=== PATIENT | female | born 1985 | race Caucasian/White ===

== ENCOUNTER 2020-10-12 23:01 | Inpatient (IN) | payer OTHER ==
[~2020-10-12] VITALS: Ht 167.6 cm; Wt 83.3 kg
[2020-10-12 23:28] LABS: BASOPHILS % (AUTO) 0.5 % (0-1); EOSINOPHILS # (AUTO) 0.1 X10'3 (0-0.9); EOSINOPHILS % (AUTO) 1.1 % (0-6); HEMATOCRIT 45.7 % (35.0-45.0); HEMOGLOBIN 15.2 g/dl (12.0-16.0); LYMPHOCYTES # (AUTO) 2.1 X10'3 (1.1-4.8); LYMPHOCYTES % (AUTO) 23.2 % (21-51); MEAN CORPUSCULAR HEMOGLOBIN 29.9 PG (27.0-31.0); MEAN CORPUSCULAR HGB CONC 33.4 g/dL (33.0-36.5); MEAN CORPUSCULAR VOLUME 89.6 FL (78-98); MEAN PLATELET VOLUME 7.1 FL (7.4-10.4); MONOCYTES # (AUTO) 0.5 X10'3 (0-0.9); MONOCYTES % (AUTO) 5.2 % (2-12); NEUTROPHILS # (AUTO) 6.3 X10'3 (1.8-7.7); PLATELET COUNT 279 X10'3 (140-440); RED CELL DISTRIBUTION WIDTH 12.8 % (11.5-14.5)
[2020-10-12 23:46] LABS: ALANINE AMINOTRANSFERASE 41 U/L (12-78); ALBUMIN 4.2 G/DL (3.4-5.0); ALBUMIN/GLOBULIN RATIO 1.2 (1.1-1.5); ALKALINE PHOSPHATASE 50 IU/L (46-116); ANION GAP 14 (8-16); ASPARTATE AMINO TRANSFERASE 21 U/L (10-37); BILIRUBIN,TOTAL 0.3 MG/DL (0.1-1.0); BLOOD UREA NITROGEN 8 MG/DL (7-18); BUN/CREATININE RATIO 10.1 (6.6-38.0); CALCIUM 8.4 MG/DL (8.5-10.1); CHLORIDE 109 MMOL/L (99-107); CREATININE 0.79 MG/DL (0.40-0.90); GLUCOSE 104 MG/DL (70-104); POTASSIUM 3.5 MMOL/L (3.5-5.1); SODIUM 145 MMOL/L (135-145); TOTAL PROTEIN 7.8 G/DL (6.4-8.2); eGFR 82 ML/MIN
[2020-10-12 23:55] LABS: ETHANOL 0.067 GM/DL (0.0-0.010)
[2020-10-13 01:56] LABS: URINE HCG NEGATIVE (NEG)
[2020-10-13 02:00] LABS: CLARITY,URINE CLEAR (Clear); COLOR,URINE YELLOW (Yellow); GLUCOSE, URINE NEGATIVE (Neg); KETONES,URINE 15 mg/dl (Neg); LEUKOCYTE ESTERASE ,URINE TRACE (Neg); NITRITES, URINE NEGATIVE (Neg); OCCULT BLOOD,URINE MODERATE (Neg); PH,URINE 5.5 (4.8-8.0); PROTEIN,URINE NEGATIVE (Neg); UROBILINOGEN,URINE 0.2 E.U/dL (0.2-1.0)
[2020-10-13 02:09] LABS: URINE AMPHETAMINE SCREEN NEGATIVE (Neg); URINE BARBITUATE SCREEN NEGATIVE (Neg); URINE BENZODIAZEPINES SCREEN NEGATIVE (Neg); URINE CANNABINOID SCREEN NEGATIVE (Neg); URINE COCAINE SCREEN NEGATIVE (Neg); URINE METHADONE SCREEN NEGATIVE (Neg); URINE OPIATE SCREEN NEGATIVE (Neg); URINE PHENCYCLIDINE SCREEN NEGATIVE (Neg)
[2020-10-13 02:19] LABS: UA COLLECTION TYPE CLN CATCH MIDSTREAM
[2020-10-13 02:27] LABS: BACTERIA,URINE NONE SEEN /HPF (Neg); SQUAMOUS EPITHELIAL CELL,UR MODERATE /LPF (FEW); WBC,URINE 20-30 /HPF (0-4)
[2020-10-13 02:28] LABS: MUCUS STRANDS FEW /LPF (Neg)
--- NOTE | 2020-10-13 03:49 | NUR ---
PACKET FAXED TO [facility]
--- NOTE | 2020-10-13 08:58 | NUR ---
DOLORES DONOHUE [phone] MOTHER. CALLED FOR UPDATE. PT DOES NOT WANT TO SPEAK TO ANYONE. MOTHER NOT UPDATED. SHE WILL CALL BACK LATER TO SEE IF DAUGHTER WANTS TO TALK
--- NOTE | 2020-10-13 10:11 | NUR ---
CALLED [facility], THEY GOT PACKET. THEY WILL BE HERE SOON TO EVALUATE. PT IN ROOM SLEEPING.
--- NOTE | 2020-10-13 10:41 | NUR ---
RECEIVED REPORT FROM ER NURSE. PT TO GO TO BED 22
--- NOTE | 2020-10-13 14:12 | NUR ---
pT ACCEPTED TO [facility]. AWAITING TRANSFFER. DISCHARGEDFROM [facility]
[2020-10-13] MEDS ORDERED: mag hydrox/Alum hydrox/simeth 30ml oral suspension PO PRN (15:15)
[2020-10-13] MEDS ORDERED: loperamide 2mg capsule PO PRN (15:15)
[2020-10-13] MEDS ORDERED: magnesium hydroxide 30ml (MOM) UD suspension PO PRN (15:15)
[2020-10-13] MEDS ORDERED: LORazepam 1 MG tablet PO PRN (15:15)
[2020-10-13] MEDS ORDERED: acetaminophen 325mg tablet PO PRN ×2 (15:15)
[2020-10-13] MEDS ORDERED: NICOTINE POLACRILEX 2 MG LOZENGE BC PRN (15:15)
[2020-10-13] MEDS ORDERED: NO HOME MEDS (15:45)
--- NOTE | 2020-10-13 15:53 | NUR ---
Admission note: Pt admitted today to [place] for Behavioral health on a 5150 for DTS,DTO at 5120. Pt expressed she wants to "End the thoughts". She stated that she was going to kill herself and shot a gun into the ceiling of her home "To make a point". Her four children were at home at the time. Pt states she has threatened to shoot herself before and her has had to take a gun away from her before. Normally the guns are locked up in a safe. Pt recently found out her had cheated on her. Pt states if she were to attempt suicide she would "Drive off a aquilino." Pt has history of depression and anxiety. Pt is cooperative with admission process.
[2020-10-13 16:14] VITALS: BP 158/100
[2020-10-13 19:00] VITALS: BP 140/84
[2020-10-13] MEDS: traZODone 50mg tablet PO PRN (21:17)
--- NOTE | 2020-10-13 23:24 | NUR ---
Nursing Progress Note: Legal hold: 5150 Client on voluntary/involuntary status for DTS. Why are they here: Pt admitted to [place] for Behavioral health on a 5150 for DTS,DTO. Pt expressed she wants to "End the thoughts". She stated that she was going to kill herself and shot a gun into the ceiling of her home "To make a point". Her four children were at home at the time. Pt states she has threatened to shoot herself before and her has had to take a gun away from her before. Normally the guns are locked up in a safe. Pt recently found out her had cheated on her. Pt states if she were to attempt suicide she would "Drive off a aquilino." Pt has history of depression and anxiety. Diagnosis/presenting symptoms: Depression Assessment What has happened this shift: Pt isolated to her room all evening, crying in bed, occasionally talking on the phone. Pt was distraught about not hearing from her , who eventually called. Pt denies being suicidal now but admits to having SI prior to discharging her gun. Pt did not want to discuss anything further. Pt requested trazadone to help her sleep. S/I, H/I: denies A/VH: denies Sleep: see sleep assessment ADL's: independent, showered Group attendance: n/a Were meds taken: yes Any med S/E: no Mental Status Exam Appearance: wnl, in green scrubs Eye contact: fair Behavior: tearful, sobbing at times Speech: wnl Mood: sad, depressed Affect: congruent Thought process: linear Thought Content: missing home Cognition: a/o x4 Insight: fair Judgment: poor Interventions PRN's used: trazadone Therapeutic interventions: 1:1 assessment, therapeutic communication, active listening, ensured contract for safety, medication administration/education/monitoring, encouragement to participate in the unit, encouragement to come out of his room, Q 15 minute safety checks. Restraints/seclusion/emergency medication: N/A Justification of Continued Inpatient Treatment: Patient requires interruption of current crisis, medication adjustment and monitoring, and a safe and therapeutic environment.
[2020-10-14 08:00] VITALS: BP 115/78
--- NOTE | 2020-10-14 12:50 | NUR ---
PSYCHOSOCIAL ASSESSMENT Met with Pt. today to complete Psychosocial. Pt was brought to [facility] by O for danger to self and to others after her daughter reported that she had shot a gun in her home. Pt. expressed that she is depressed and wants to end the thoughts. She stated that she was going to kill herself and shot a gun in to the ceiling of her home to make a point. Her four children were at home at the time. Pt. has a history of suicidal ideation and depression/anxiety. She reported today that she had been on medications for depression/anxiety in the past but had stopped taking these medications years ago. She is open to going back on medications and going to therapy. She reported that in the past six months her and her having been going through a rough patch as she found on that he cheated on her in April 2020. They have decided to stay together and to continue to work on their marriage but she recently found out that he was cheating on her again. She reported they have been together for 18 years and is committed to staying in the marriage. Pt. works for [employer] in [place] and lives in [place], [place]. She only started working again 2 months ago after they thought it would help get her focus off their marital issues. She feels that working has been a very difficult transition. She has an hour commute both ways were she passes by the [employer] home whom her is having an affair with. She finds it difficult to think straight at work with all that is going on between her and her . She reported today that they have decided she will not return to work when she gets back home. Pt. denied feeling suicidal at this time, she admitted to having occasional suicidal thoughts when she feels down. She scaled her feeling of depression at a 2 and anxiety at a 4 on a scale of 0-10, 0 being the best she's ever felt and 10 being the worst. She also reported she just wants to get out of here and began to cry. 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 He reported he feels her being home with her family is the best place for her to be. He reported that he has locked guns back up in the safe and changed the Access codes so she doesnt know what they are. He is supportive of her getting outpt. Services when she leaves [facility]. He also reported that a executive secretary social welfare from [facility] will out to the house this week to talk with them. He will be the one to pick her up upon discharge. MSE: A/O: Alert and oriented X 4 Appearance: wearing hospital clothes Behavior: compliant, pleasant to work with Speech: WNL Mood: anxious, teary presentation Affect: congruent to mood Thought Process: WNL Thought Content: WNL Nimisha Rojas LCSW
--- NOTE | 2020-10-14 14:00 | NUR ---
Nursing Progress Note: Legal hold: 5150 Client on involuntary status for DTS Report received from nurse with use of SBAR: Carol Quinones RN Why are they here: Pt admitted to [place] for Behavioral health on a 5150 for DTS,DTO. Pt expressed she wants to "End the thoughts". She stated that she was going to kill herself and shot a gun into the ceiling of her home "To make a point". Her four children were at home at the time. Pt states she has threatened to shoot herself before and her has had to take a gun away from her before. Normally the guns are locked up in a safe. Pt recently found out her had cheated on her. Pt states if she were to attempt suicide she would "Drive off a aquilino." Pt has history of depression and anxiety. Assessment What has happened this shift: Received pt. sleeping in bed at the beginning of the shift, she awoke and requested PRN Tylenol for a headache before retreating back to bed. Tylenol administered with some effectiveness; pt. did have an elevated blood alcohol content upon admission, however she denies ever experiencing any s/s of withdrawal previously and no other s/s exhibited (no tremors noted, V/S WNL, and no tactile of A/V/MEEK noted).1:1 completed later at bedside, pt. presents as cooperative, guarded, and withdrawn. She denies any S/I and appears to be minimizing, pt. states, "I'm fine." She does inquire about re-starting Lexapro, reporting that it helped her previously. This typewriter repairer encouraged pt. to discuss this with the psychiatrist that she will be meeting with later, and she reported understanding. Pt. remained withdrawn throughout the day and was not observed to be interacting with others. She napped during the afternoon. Per admission labs, pt. had an elevated WBC count and leukocyte esterase in her urine. She currently denies any s/s of a UTI including burning or frequency of urination, however admits she has had frequent UTIs in the past. This was endorsed to Dr. Medellin upon his evaluation of patient. S/I, H/I: Denies A/VH: Denies, does not appear internally preoccupied Sleep: Sleep hours are 7, and pt. naps intermittently during the day ADL's: Independent Group attendance: N/A Were meds taken: None ordered Any med S/E: N/A Mental Status Exam Appearance: Somewhat disheveled r/t laying in bed, however appropriately dressed. Pt. did shower this shift. Eye contact: Moderate Behavior: Cooperative, guarded, and withdrawn Speech: Soft, responses are minimal Mood: Guarded Affect: Constricted Thought process: Poverty of thought Thought Content: WNL Cognition: A&O X4 Insight: Poor Judgment: Poor Interventions PRN's used: Tylenol Therapeutic interventions: Introduced self and established rapport, maintained a safe and supportive environment, ensured contract for safety, provided clear and simple instructions, and maintained Q 15min safety checks. Restraints/seclusion/emergency medication: N/A Justification of Continued Inpatient Treatment: Pt. requires interruption of current crisis, medication adjustments, and a safe and supportive environment.
[2020-10-14 15:38] LABS: CHOL/HDL RATIO 3.8 (0.00-4.99); CHOLESTEROL 229 MG/DL (0-200); HDL CHOLESTEROL 60 MG/DL (35-60); LDL CHOLESTEROL 138 MG/DL (50-100); TRIGLYCERIDES 102 MG/DL (20-135)
[2020-10-14 15:39] LABS: HEMOGLOBIN A1C 4.9 % (4.5-6.2)
[2020-10-14] MEDS ORDERED: ESCITALOPRAM OXALATE 5 MG TABLET PO ONE (16:25)
[2020-10-14] MEDS ORDERED: ibuprofen 200mg tablet PO PRN (17:55)
[2020-10-14 19:26] VITALS: BP 133/87
[2020-10-14] MEDS: traZODone 50mg tablet PO PRN (20:45)
--- NOTE | 2020-10-14 23:43 | NUR ---
Nursing Progress Note: Legal hold: 5150 Client on involuntary status for DTS Report received from nurse with use of SBAR: LIDIA Smith Why are they here: Pt admitted to [place] for Behavioral health on a 5150 for DTS,DTO. Pt expressed she wants to "End the thoughts". She stated that she was going to kill herself and shot a gun into the ceiling of her home "To make a point". Her four children were at home at the time. Pt states she has threatened to shoot herself before and her has had to take a gun away from her before. Normally the guns are locked up in a safe. Pt recently found out her had cheated on her. Pt states if she were to attempt suicide she would "Drive off a aquilino." Pt has history of depression and anxiety. Assessment What has happened this shift: Received pt. isolating in her room at the beginning of the shift, she was observed to be talking on the telephone. Pt. again reported a headache, and a new order was obtained for PRN Motrin, administered with effectiveness. Pt. was later sitting up in the Group Room watching TV, however continues to be withdrawn form others and guarded in conversation. 1:1 completed, pt. responds to direct questions only with a minimal response. She continues to deny any S/I, but does admit to some depression. She again appears to be minimizing, stating somewhat defensively, "I think that's appropriate considering what I'm going through." However, when further questioned by this screenplay writer, pt. does report that she was able to speak on the telephone with all of her kids today, she states, "That made me feel good." Pt. requests PRN Trazodone before retreating to bed, she appears to be sleeping well. S/I, H/I: Denies A/VH: Denies, does not appear internally preoccupied Sleep: Pt. requests PRN Trazodone at HS, appears to be sleeping well ADL's: Independent Group attendance: N/A Were meds taken: Yes Any med S/E: None Mental Status Exam Appearance: Neat and appropriately dressed Eye contact: Moderate Behavior: Cooperative, guarded, and withdrawn Speech: Soft, responds to direct questions with a minimal response Mood: Guarded Affect: Constricted Thought process: Poverty of thought Thought Content: WNL Cognition: A&O X4 Insight: Poor Judgment: Poor Interventions PRN's used: Motrin and Tramadol Therapeutic interventions: Maintained a safe and supportive environment, ensured contract for safety, provided active listening and positive encouragement, and maintained Q 15min safety checks. Restraints/seclusion/emergency medication: N/A Justification of Continued Inpatient Treatment: Per Dr. Delgadillo, pt. requires interruption of current crisis, medication adjustments, and a safe and supportive environment.
[2020-10-15 07:16] VITALS: BP 142/84
[2020-10-15] MEDS: ESCITALOPRAM OXALATE 5 MG TABLET PO SCH (07:48)
[2020-10-15 10:39] LABS: CLARITY,URINE CLEAR (Clear); COLOR,URINE YELLOW (Yellow); GLUCOSE, URINE NEGATIVE (Neg); KETONES,URINE NEGATIVE (Neg); LEUKOCYTE ESTERASE ,URINE NEGATIVE (Neg); NITRITES, URINE NEGATIVE (Neg); OCCULT BLOOD,URINE SMALL (Neg); PROTEIN,URINE NEGATIVE (Neg); UROBILINOGEN,URINE 0.2 E.U/dL (0.2-1.0)
[2020-10-15 10:41] LABS: UA COLLECTION TYPE CLN CATCH MIDSTREAM
--- NOTE | 2020-10-15 10:41 | NUR ---
Clean catch UA collected and sent.
[2020-10-15 10:48] LABS: BACTERIA,URINE NONE SEEN /HPF (Neg); MUCUS STRANDS NONE SEEN /LPF (Neg); RBC,URINE 0-2 /HPF (0-2); SQUAMOUS EPITHELIAL CELL,UR FEW /LPF (FEW); WBC,URINE 0-4 /HPF (0-4)
--- NOTE | 2020-10-15 11:02 | NUR ---
UA negative for leukocyte esterase or bacteria, no culture indicated.
--- NOTE | 2020-10-15 17:35 | NUR ---
Nursing Progress Note: Legal hold: 5150 Client on involuntary status for DTS Report received from nurse with use of SBAR: Karen RN Why are they here: Pt admitted to [place] for Behavioral health on a 5150 for DTS,DTO. Pt expressed she wants to "End the thoughts". She stated that she was going to kill herself and shot a gun into the ceiling of her home "To make a point". Her four children were at home at the time. Pt states she has threatened to shoot herself before and her has had to take a gun away from her before. Normally the guns are locked up in a safe. Pt recently found out her had cheated on her. Pt states if she were to attempt suicide she would "Drive off a aquilino." Pt has history of depression and anxiety. Assessment What has happened this shift: Pt was up for breakfast and cooperative with her antidepressant. Pt"s Lexapro was increased to 10 mg daily today. Pt reported that it made her feel a little drowsy but she expected that. Pt states she has been on Lexapro before and it was helpful. Pt spends much of her time in the community room reading and watching TV. Pt denies depression, anxiety, SI/HI/AH/VH. Pt is looking forward to going home. Pt states Dr Delgadillo told her that she will be discharged tomorrow around noon. S/I, H/I: Pt denies. A/VH: Pt denies. Sleep: Pt slept 8 hours last night per noc shift report. ADL's: Independent Group attendance: N/A Were meds taken: Yes Any med S/E: Pt reported some mild drowsiness. Mental Status Exam Appearance: Neat, clean woman with her hair pulled back dressed in unit scrubs. Eye contact: Good. Behavior: Pleasant, cooperative, mostly isolative to self, reads in the community room. Speech: Clear, audible, quiet. Mood: "Good." Affect: Calm Thought process: Organized. Thought Content: Looking forward to going home. Cognition: A&O X4 Insight: Fair Judgment: Fair Interventions PRN's used: None Therapeutic interventions: 1:1 assessment, encouraged pt to express her thoughts and feelings, therapeutic conversation active listening, maintained a safe and supportive environment, ensured contract for safety, provided encouragement and positive reinforcement, and maintained Q 15 minute safety checks. Restraints/seclusion/emergency medication: N/A Justification of Continued Inpatient Treatment: Per Dr. Delgadillo, pt. requires interruption of current crisis, medication adjustments, and a safe and supportive environment. Plan is for pt to discharge home tomorrow.
[2020-10-15 19:15] VITALS: BP 139/85
[2020-10-15] MEDS: traZODone 50mg tablet PO PRN (21:31)
--- NOTE | 2020-10-16 02:03 | NUR ---
Nursing Progress Note: Legal hold: 5150 Client on involuntary status for DTS Report received from nurse with use of SBAR: LIDIA Smith Why are they here: Pt admitted to [place] for Behavioral health on a 5150 for DTS,DTO. Pt expressed she wants to "End the thoughts". She stated that she was going to kill herself and shot a gun into the ceiling of her home "To make a point". Her four children were at home at the time. Pt states she has threatened to shoot herself before and her has had to take a gun away from her before. Normally the guns are locked up in a safe. Pt recently found out her had cheated on her. Pt states if she were to attempt suicide she would "Drive off a aquilino." Pt has history of depression and anxiety. Assessment What has happened this shift: Pt was in the group room at shift change reading a book. Pt was friendly and cooperative for 1:1. Pt denies any symptoms and is happy to be going home tomorrow. pt requested trazadone to help her sleep and went to bed. S/I, H/I: Denies A/VH: Denies, does not appear internally preoccupied Sleep: Pt. requests PRN Trazodone at HS, appears to be sleeping well ADL's: Independent Group attendance: N/A Were meds taken: Yes Any med S/E: None Mental Status Exam Appearance: Neat and appropriately dressed Eye contact: Moderate Behavior: Cooperative, guarded, and withdrawn Speech: Soft, responds to direct questions with a minimal response Mood: Guarded Affect: Constricted Thought process: Poverty of thought Thought Content: WNL Cognition: A&O X4 Insight: Poor Judgment: Poor Interventions PRN's used: trazadone Therapeutic interventions: Maintained a safe and supportive environment, ensured contract for safety, provided active listening and positive encouragement, and maintained Q 15min safety checks. Restraints/seclusion/emergency medication: N/A Justification of Continued Inpatient Treatment: Per Dr. Delgadillo, pt. requires interruption of current crisis, medication adjustments, and a safe and supportive environment.
[2020-10-16] MEDS: ESCITALOPRAM OXALATE 5 MG TABLET PO SCH (07:48)
[2020-10-16 08:00] VITALS: BP 112/82
[2020-10-16] MEDS ORDERED: ESCI-8 PO (10:11)
[2020-10-16] MEDS ORDERED: TRAZ-251 PO (10:11)
[2020-10-16] MEDS ORDERED: NICO-668 BC (10:11)
--- NOTE | 2020-10-16 11:23 | NUR ---
Discharge Note: Pt dc'd at 1122 today, her picked her up at the front entrance of the hospital. pt's belongings were inventoried and returned. This rn discussed community resources, medications and discharge instructions with patient. pt feels that her experience here was positive and she is ready to go home. all questions were answered.
== END 2020-10-16 11:22 | disposition home or self-care (01) | DRG 885 ==
LOC: ER 23:02 → ADULT MH 10-13 13:05
PROVIDERS: ADMIT Psychiatry & Neurology Psychiatry; ATTEND Psychiatry & Neurology Psychiatry
DX: F33.2 Major depressive disorder, recurrent severe without psychotic features (principal); R45.851 Suicidal ideations; F41.1 Generalized anxiety disorder; Y90.3 Blood alcohol level of 60-79 mg/100 ml
CPT/HCPCS: 36415; 80053; 80061; 80305; 80320; 81001; 81025; 83036; 84443; 85025; 87081; 99285

== ENCOUNTER 2021-10-21 20:52 | Inpatient (IN) | payer OTHER ==
[~2021-10-21] VITALS: Ht 167.6 cm; Wt 95.2 kg
[~2021-10-21 20:52] MED LIST: ESCI-8 PO; NICO-668 BC; TRAZ-251 PO
[2021-10-21 21:45] VITALS: BP 131/84
[2021-10-21] MEDS ORDERED: acetaminophen 325mg tablet PO PRN (21:55)
[2021-10-21] MEDS ORDERED: mag hydrox/Alum hydrox/simeth 30ml oral suspension PO PRN (21:55)
[2021-10-21] MEDS ORDERED: loperamide 2mg capsule PO PRN (21:55)
[2021-10-21] MEDS ORDERED: magnesium hydroxide 30ml (MOM) UD suspension PO PRN (21:55)
[2021-10-21] MEDS ORDERED: NICOTINE POLACRILEX 2 MG LOZENGE BC PRN (21:55)
[2021-10-21] MEDS ORDERED: hydrOXYzine 25 MG tablet PO PRN (22:35)
[2021-10-21] MEDS ORDERED: cephalexin 250mg capsule PO ONE (22:35)
[2021-10-21] MEDS: traZODone 50mg tablet PO PRN (22:54)
--- NOTE | 2021-10-22 05:02 | NUR ---
HOT DIP TINNING SUPERVISOR NOTE: LEGAL HOLD: 5150 for DTS PROBLEM: Client was taken to [facility] by EMS after overdosing on Lexapro, and cutting her neck, in an attempt to end her life. Client transferred from [facility] to [facility] Crisis unit. INTERVENTION: I. Assess mood, affect, and thought process. I. [place] Suicide Assessment. I. Level II search. I. Inventory belongings. I. Obtain mental health and physical assessment. RESPONSE: Clients hand an affair with a co-worker 1 1/2 years ago. Client reports she has been depressed for 20 years, and since the affair the depression has increased. (Client was admitted to [facility] in October 2020 for attempting suicide w/ gun.) She stated, "He had an affair. How am I supposed to get over that?" Client reports drinking 5 - 6 IPA beers/day. On Saturday client was at her Psychiatrist office. The MD recommended client enter Rehab for ETOH use. Client became angry, left the office, went home and attempted suicide. Client stated, "I've been depressed for over 20 years and she wanted to talk about rehab! My depression is the real problem!" This RN stated, "You seem angry." Client replied, "I'm disgusted!" Client feel's inpatient admission is "a joke". "I was here before and there was no follow up." Client arrived on the unit at 21:35 accompanied by [facility]. Client showered, vital signs were obtained, belongings were inventoried, and client went to bed. Client is angry. Reports depression.
[2021-10-22] MEDS: nicotine 21mg patch - 24 hr TD SCH ×2 (07:38→08:00)
[2021-10-22 07:49] VITALS: BP 140/89
[2021-10-22] MEDS ORDERED: venlafaxine XR 37.5mg cap (Q24H) PO ONE (08:30)
[2021-10-22] MEDS ORDERED: LORazepam 0.5 MG tablet PO PRN (08:30)
[2021-10-22 08:37] LABS: HCG SERUM QL NEGATIVE
[2021-10-22 09:05] LABS: CHOL/HDL RATIO 4.5 (0.00-4.99); CHOLESTEROL 207 MG/DL (0-200); HDL CHOLESTEROL 46 MG/DL (35-60); LDL CHOLESTEROL 134 MG/DL (50-100); TRIGLYCERIDES 127 MG/DL (20-135)
[2021-10-22 09:17] LABS: HEMOGLOBIN A1C 5.1 % (4.5-6.2)
--- NOTE | 2021-10-22 18:00 | NUR ---
Nursing Progress Note: Problem: Client was taken to [facility] by EMS after overdosing on Lexapro, and cutting her neck, in an attempt to end her life. Client transferred from [facility] to [facility] Crisis unit. Intervention: Provided with a safe and therapeutic environment, clear communication, active listening and positive encouragement. Response: Patient is resting quietly in bed at the start of the shift. Awakened to meet with the provider after which she is tearful and irritable. Refuses nicotine patch but is cooperative with taking her Effexor. Patient is guarded and withdrawn. Goes to the patio area in the morning with her peers and interacts appropriately. Isolates to her room for several hours. Mood appears to improve in the afternoon. Noted watching TV in the community room. Plan: Patient continues to require crisis interruption and stabilization with medication management and monitoring in a safe and therapeutic environment.
[2021-10-22 19:39] VITALS: BP 112/83
[2021-10-22] MEDS: traZODone 50mg tablet PO PRN (20:57)
--- NOTE | 2021-10-23 05:25 | NUR ---
Nursing Progress Note: Problem: Client was taken to [facility] by EMS after overdosing on Lexapro, and cutting her neck, in an attempt to end her life. Client transferred from [facility] to [facility] Crisis unit. Intervention: Provided with a safe and therapeutic environment, clear communication, active listening and positive encouragement. Response: Patient is pleasant and cooperative with care; no scheduled medications this shift. PRN Trazodone provided. She denies SI, HI, A/VH; no apparent delusions expressed. Patient observed watching TV with peers, talking on the phone with SO and participated in HS snack prior to bed; observed sleeping and does not appear to be having difficulty. Plan: Patient continues to require crisis interruption and stabilization with medication management and monitoring in a safe and therapeutic environment.
[2021-10-23] MEDS: venlafaxine XR 75mg capsule (Q24H) PO SCH (07:57)
[2021-10-23] MEDS: atorvastatin 20mg tablet PO SCH (07:57)
[2021-10-23 08:00] VITALS: BP 117/78
--- NOTE | 2021-10-23 15:13 | NUR ---
Nursing Progress Note: Problem: Client was taken to [facility] by EMS after overdosing on Lexapro, and cutting her neck, in an attempt to end her life. Client transferred from [facility] to [facility] Crisis unit. Intervention: Provided with a safe and therapeutic environment, clear communication, active listening and positive encouragement. Response: Patient is sleeping at change of shift and up before breakfast reading a book in the Community Room. Patient denies suicidal/homicidal ideation. Patient does concede she has some depression. Patient states she is fine and is possibly minimizing the suicidal attempt because she wants to go home. Patient spends a lot of time reading in the Community Room. Plan: Patient continues to require crisis interruption and stabilization with medication management and monitoring in a safe and therapeutic environment.
[2021-10-23 16:17] LABS: CLARITY,URINE CLOUDY (Clear); COLOR,URINE YELLOW (Yellow); GLUCOSE, URINE NEGATIVE (Neg); KETONES,URINE TRACE mg/dl (Neg); LEUKOCYTE ESTERASE ,URINE NEGATIVE (Neg); NITRITES, URINE NEGATIVE (Neg); OCCULT BLOOD,URINE LARGE (Neg); PROTEIN,URINE NEGATIVE (Neg); UROBILINOGEN,URINE 0.2 E.U/dL (0.2-1.0)
[2021-10-23 16:25] LABS: MUCUS STRANDS MODERATE /LPF (Neg); SQUAMOUS EPITHELIAL CELL,UR MANY /LPF (FEW); UA COLLECTION TYPE URINAL
[2021-10-23 16:26] LABS: BACTERIA,URINE FEW /HPF (Neg); RBC,URINE TNTC /HPF (0-2); WBC,URINE 0-4 /HPF (0-4)
[2021-10-23 19:42] VITALS: BP 136/82
[2021-10-23] MEDS: traZODone 50mg tablet PO PRN (20:52)
--- NOTE | 2021-10-24 05:16 | NUR ---
Nursing Progress Note: Problem: Client was taken to [facility] by EMS after overdosing on Lexapro, and cutting her neck, in an attempt to end her life. Client transferred [facility] to [facility] Crisis unit. Intervention: Provided with a safe and therapeutic environment, clear communication, active listening and positive encouragement. Response: Patient is pleasant and cooperative with care; no scheduled meds this shift. PRN Trazodone provided. She denies SI, HI, A/VH; no apparent delusions expressed. She is observed talking on the phone, watching TV and participated in HS snack prior to bed; does not appear to be having difficulty sleeping. Plan: Patient continues to require crisis interruption and stabilization with medication management and monitoring in a safe and therapeutic environment.
[2021-10-24 08:19] VITALS: BP 123/80
[2021-10-24] MEDS: atorvastatin 20mg tablet PO SCH (08:36)
[2021-10-24] MEDS: venlafaxine XR 75mg capsule (Q24H) PO SCH (08:36)
[2021-10-24] MEDS: acetaminophen 325mg tablet PO PRN ×2 (08:44→20:55)
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
[2021-10-24 19:28] VITALS: BP 135/78
[2021-10-24] MEDS: traZODone 50mg tablet PO PRN (20:54)
--- NOTE | 2021-10-25 04:49 | NUR ---
Nursing Progress Note: Problem: Client was taken to [facility] by EMS after overdosing on Lexapro, and cutting her neck, in an attempt to end her life. Client transferred from [facility] to [facility] [place] Crisis unit. Intervention: Provided with a safe and therapeutic environment, clear communication, active listening and positive encouragement. Response: Pleasant and cooperative with care; compliant with medication. PRN Trazodone and Tylenol provided. She continues to deny SI, HI, A/VH; no apparent delusions expressed. She is observed talking on the phone that appeared to be going well as she was smiling and participated in HS snack prior to bed. Observed sleeping and does not appear to be having difficulty. Plan: Patient continues to require crisis interruption and stabilization with medication management and monitoring in a safe and therapeutic environment.
--- NOTE | 2021-10-25 07:03 | NUR ---
Initial: Pt admitted w/ major depressive disorder and SI per EMR. Currently on Regular diet w/ avg intake 64% of meals though up to 100% last 2 meals. Overall meeting est needs at this time. LBM 10/24. No nutrition intervention implemented at this time. Will continue to monitor. Recs: 1. Continue Regular diet as tolerated 2. Bowel care PRN 3. Weekly wts Addendum: 10/25/21 at [address] Amended: Links added.
[2021-10-25 07:39] VITALS: BP 116/75
[2021-10-25] MEDS: atorvastatin 20mg tablet PO SCH (08:10)
[2021-10-25] MEDS: venlafaxine XR 75mg capsule (Q24H) PO SCH (08:10)
--- NOTE | 2021-10-25 11:57 | NUR ---
NURSING PROGRESS NOTE Problem: Patient was taken to [facility] by EMS after overdosing on Lexapro, and superficially cutting her neck, in an attempt to end her life. Pt has a history of depression with noncompliance with medications. Intervention: One on one assessment with therapeutic communication and active listening, administered and monitored medication per orders with no adverse side effects, encouraged to participate in unit activities, reality orientation as needed. Response: Received patient awake lying in her bed at shift change, pt reports poor sleep. Pt is anxious to go home. Pt denies suicidal/homicidal ideation, A/VH. Pt isolates to herself, sits in back of group room reading. Pt attended morning group session. Pt is cooperative with care and medications. Pt feels the medication is helping. Pt is focused on getting home and tends to minimize symptoms her symptoms. Plan: Patient continues to be a high risk discharge. Pt minimizes symptoms and has a history of non-compliance with medications. Pt requires interruption of current crisis and is unable to formulate a safe discharge plan.
[2021-10-25] MEDS: acetaminophen 325mg tablet PO PRN (14:43)
[2021-10-25] MEDS ORDERED: naltrexone 50mg tablet PO ONE (16:45)
[2021-10-25] MEDS ORDERED: ketorolac tromethamine 15mg/ml inj. IM ONE ×2 (18:35)
[2021-10-25] MEDS ORDERED: acetaminophen 325mg tablet PO ONE (18:40)
[2021-10-25 20:00] VITALS: BP 141/85
[2021-10-25] MEDS: traZODone 50mg tablet PO PRN (20:58)
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
[2021-10-26 07:51] VITALS: BP 109/73
[2021-10-26] MEDS ORDERED: venlafaxine 37.5mg tablet PO SCH (08:00)
[2021-10-26] MEDS: atorvastatin 20mg tablet PO SCH (09:32)
[2021-10-26] MEDS: naltrexone 50mg tablet PO SCH (09:33)
--- NOTE | 2021-10-26 15:12 | NUR ---
DISCHARGE PLAN Spoke to Alexandrea's , Russ (ph# [phone]) and he reported he is comfortable with Alexandrea returning home tomorrow. Scheduled her follow up with [facility] for 11/08/[address] White. Russ can picker Alexandrea at 11 AM tomorrow. GIOVANI Early
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
[2021-10-26] MEDS ORDERED: venlafaxine 37.5mg tablet PO ONE (17:15)
[2021-10-26] MEDS ORDERED: HYDR50TA65 PO (17:24)
[2021-10-26] MEDS ORDERED: NALT50TA PO (17:24)
[2021-10-26] MEDS ORDERED: ATOR20TA66 PO (17:24)
[2021-10-26] MEDS ORDERED: TRAZ-251 PO (17:24)
[2021-10-26] MEDS ORDERED: VENL225T3 PO (17:24)
[2021-10-26 20:00] VITALS: BP 126/86
[2021-10-26] MEDS: traZODone 50mg tablet PO PRN (21:04)
--- NOTE | 2021-10-27 01:48 | NUR ---
NURSING PROGRESS NOTE : Kr[place] Problem: Patient was taken to [facility] by EMS after overdosing on Lexapro, and superficially cutting her neck, in an attempt to end her life. Pt has a history of depression with noncompliance with medications. Intervention: One on one assessment with therapeutic communication and active listening, administered and monitored medication per orders with no adverse side effects, encouraged to participate in unit activities, reality orientation as needed. Response: Received Pt in community room watching TV with other peers. Pt calm and cooperative with care, denies any MH symptoms and looking forward to going home tomorrow. Pt up for snacks and requested PRN trazadone at bedtime. Pt to bed shortly after med pass. Plan: Patient continues to be a high risk discharge. Pt minimizes symptoms and has a history of non-compliance with medications. Pt requires interruption of current crisis and is unable to formulate a safe discharge plan.
[2021-10-27 07:00] VITALS: BP 139/80
[2021-10-27] MEDS: atorvastatin 20mg tablet PO SCH (07:29)
[2021-10-27] MEDS: naltrexone 50mg tablet PO SCH (07:29)
[2021-10-27] MEDS ORDERED: venlafaxine 37.5mg tablet PO SCH (08:00)
--- NOTE | 2021-10-27 10:31 | NUR ---
Discharge Note: Alexandrea Paperwork and follow up are reviewed with the patient who is agreeable to discharge home. Patient contracts for safety and states, My and I have a good plan. Medication prescriptions sent to [facility] pharmacy in [place] as the patients pharmacy of choice. Escorted off the unit by staff with all of her belongings at 10:30 and is picked up by family. Discharged with the following instructions: Follow-Up: Patient has been scheduled/referred to the following providers for post-hospital discharge and aftercare treatment. Psychiatrist: Appointment: 11/08/21 at 9:[address] White [facility] [address] [place] [address] Discharge Address: [facility] [address] [place], [place] Transportation: : Russ Ph# [phone] Patient given community crisis services information and National suicide hotline handout. Resources for education regarding mental illness: [address] [address] For urgent mental health crisis needs please contact Mobile Crisis Outreach Team Saturday through Saturday 8:30am to 5:00pm. . Mobile Crisis Outreach Team [address] [place] [id number] Urgent Out-patient Mental Health Services 365 Days A Year: [address] [address] Hours: Mon thru Fri 12pm-9pm Weekends 11am-9pm
== END 2021-10-27 10:30 | disposition home or self-care (01) | DRG 885 ==
LOC: ADULT MH 21:32
PROVIDERS: ADMIT Psychiatry & Neurology Psychiatry; ATTEND Psychiatry & Neurology Psychiatry
DX: F33.2 Major depressive disorder, recurrent severe without psychotic features (principal); T43.222A Poisoning by selective serotonin reuptake inhibitors, intentional self-harm, initial encounter; N39.0 Urinary tract infection, site not specified; M25.511 Pain in right shoulder; F11.10 Opioid abuse, uncomplicated; E78.00 Pure hypercholesterolemia, unspecified; F10.20 Alcohol dependence, uncomplicated; F17.210 Nicotine dependence, cigarettes, uncomplicated; F41.1 Generalized anxiety disorder; Y90.5 Blood alcohol level of 100-119 mg/100 ml; Z79.899 Other long term (current) drug therapy; Z71.6 Tobacco abuse counseling; Y92.098 Other place in other non-institutional residence as the place of occurrence of the external cause
CPT/HCPCS: 36415; 80061; 81001; 83036; 84443; 84703; 87081; J1885